=== PATIENT | male | born 1980 | race African-American/Black ===

== ENCOUNTER 2022-05-18 16:05 | Emergency (ER) | payer OTHER ==
[~2022-05-18] VITALS: Ht 185.4 cm; Wt 73.0 kg
[2022-05-18] MEDS ORDERED: SODIUM CHLORIDE 0.9% 1,000 ML IV ONE (17:00)
[2022-05-18] MEDS ORDERED: MIDAZOLAM HCL 2 MG/2 ML VIAL IV ONE (17:00)
[2022-05-18 18:18] LABS: BASOPHILS % 0.6 % (0.0-2.0); EOSINOPHILS % 3.3 % (0.0-5.0); HEMATOCRIT. 37.6 % (42.0-52.0); HEMOGLOBIN. 12.5 g/dL (14.0-18.0); LYMPHOCYTES % 21.5 % (20.0-50.0); MEAN CORPUSCULAR HEMOGLOBIN 28.1 pg (28.0-32.0); MEAN CORPUSCULAR VOLUME 84.4 fL (80.0-94.0); MEAN PLATELET VOLUME 7.8 fl (7.4-10.4); MONOCYTES % 8.3 % (2.0-8.0); NEUTROPHILS % 66.3 % (40.0-76.0); PLATELET 243 x1000/uL (130-400); RED BLOOD CELL COUNT 4.46 mill/uL (4.7-6.1); RED CELL DISTRIBUTION WIDTH 13.7 % (11.6-14.6)
[2022-05-18 18:31] LABS: CHLORIDE 112 mEq/L (98-107)
[2022-05-18 18:40] LABS: ETHANOL BLOOD < 10 mg/dL
[2022-05-18 18:57] VITALS: BP 134/83
== END 2022-05-18 22:10 ==
LOC: ER 16:05
DX: R41.82 Altered mental status, unspecified (principal)
CPT/HCPCS: 36415; 70450; 80053; 80307; 80320; 80329; 85025; 93005; 96361; 96374; 99285; J2250; J7030; G0480